=== PATIENT | female | born 1980 | race Caucasian/White ===

== ENCOUNTER 2025-09-29 21:09 | Emergency (ER) | payer OTHER ==
[~2025-09-29] VITALS: Ht 153 cm; Wt 77.3 kg
[2025-09-29 21:13] VITALS: TEMP 99.5
[2025-09-29 22:07] VITALS: BP 133/84; PULSE 77; RESP 18; O2SAT 97
[2025-09-29 23:11] LABS: PLATELET COUNT (AUTO) 277 K/uL (150-450); RED BLOOD CELL COUNT(AUTO) 4.30 MIL/uL (4.00-5.20); RED CELL DISTRIBUTION WIDTH 14.1 % (11.5-14.5); WHITE BLOOD COUNT (AUTO) 7.3 K/uL (4.5-11.0)
[2025-09-29 23:21] LABS: CALCIUM, TOTAL 8.0 mg/dL (8.8-10.5); CREATININE 0.86 mg/dL (0.60-1.30); GLOMERULAR FILTR. RATE CALC > 60 mL/min (>60); GLUCOSE,RANDOM 100 mg/dL (70-110); SODIUM SERUM 141 mmol/L (136-145); UREA NITROGEN, BLOOD 7 mg/dL (7-18)
[2025-09-29 23:27] LABS: ASPARTATE AMINOTRANSFERASE 21.0 U/L (15-37); TOTAL PROTEIN, SERUM 5.6 g/dL (6.4-8.2)
[2025-09-29 23:30] LABS: TROPONIN I-HIGH SENSITIVITY 4 ng/L (<51)
[2025-09-29 23:30] LABS: APPEARANCE,URINE CLEAR (CLEAR); GLUCOSE, URINE (UA) NEGATIVE (NEGATIVE); LEUKOCYTE ESTERASE ,URINE NEGATIVE (NEGATIVE); NITRATE,URINE NEGATIVE (NEGATIVE); OCCULT BLOOD,URINE NEGATIVE (NEGATIVE); SPECIFIC GRAVITIY, URINE 1.011 (1.003-1.030)
[2025-09-29] MEDS: ONDANSETRON HCL 4 MG/2 ML VIAL IVP ONE (23:40)
[2025-09-29] MEDS: KETOROLAC TROMETHAMINE 30 MG/ML VIAL IVP ONE (23:41)
[2025-09-29] MEDS ORDERED: IOHEXOL 350 MG/ML 100 ML VIAL ONE (23:59)
== END 2025-09-30 01:17 | disposition home or self-care (01) ==
LOC: EMS 21:11
DX: G43.909 Migraine, unspecified, not intractable, without status migrainosus (principal); Z91.013 Allergy to seafood
CPT/HCPCS: 99291; 74177; 96374; 71045; 96375; 80048; 80076; 81003; 84484; 84703; 85025; 85610; 85730; 36415; 93005; J1885; Q9967; J2405